=== PATIENT | female | born 1970 | race Caucasian/White ===

== ENCOUNTER → 2025-02-12 08:39 | Outpatient (CLI) | payer OTHER, SELFPAY | PROVIDERS: PCP Nurse Practitioner; Referring Provider Nurse Practitioner; Visit Provider Surgery | DX: S81.801A Unspecified open wound, right lower leg, initial encounter (principal); L53.8 Other specified erythematous conditions; R23.4 Changes in skin texture; R60.0 Localized edema | CPT/HCPCS: 11042; 99203; 99213 ==

== ENCOUNTER → 2025-02-19 09:34 | Outpatient (CLI) | payer OTHER, SELFPAY | PROVIDERS: PCP Nurse Practitioner; Referring Provider Nurse Practitioner; Visit Provider Surgery | DX: S81.801A Unspecified open wound, right lower leg, initial encounter (principal); I10 Essential (primary) hypertension; R60.0 Localized edema | CPT/HCPCS: 11042 ==

== ENCOUNTER → 2025-02-26 15:04 | Outpatient (CLI) | payer OTHER, SELFPAY | LOC: WC 15:05 | PROVIDERS: PCP Nurse Practitioner; Referring Provider Nurse Practitioner; Visit Provider Surgery | DX: S81.801A Unspecified open wound, right lower leg, initial encounter (principal); Y92.094 Garage of other non-institutional residence as the place of occurrence of the external cause; R23.4 Changes in skin texture | CPT/HCPCS: 11042 ==

== ENCOUNTER → 2025-03-06 14:43 | Outpatient (CLI) | payer OTHER, SELFPAY | LOC: WC 15:01 | PROVIDERS: PCP Nurse Practitioner; Referring Provider Nurse Practitioner; Visit Provider Surgery | DX: S81.811A Laceration without foreign body, right lower leg, initial encounter (principal) | CPT/HCPCS: 11042 ==

== ENCOUNTER → 2025-03-13 15:16 | Outpatient (CLI) | payer OTHER, SELFPAY | PROVIDERS: PCP Nurse Practitioner; Referring Provider Nurse Practitioner; Visit Provider Surgery | DX: S81.811A Laceration without foreign body, right lower leg, initial encounter (principal); L98.8 Other specified disorders of the skin and subcutaneous tissue | CPT/HCPCS: 11042; 99213 ==

== ENCOUNTER → 2025-03-21 15:02 | Outpatient (CLI) | payer OTHER, SELFPAY | PROVIDERS: PCP Nurse Practitioner; Referring Provider Nurse Practitioner; Visit Provider Surgery | DX: S81.801A Unspecified open wound, right lower leg, initial encounter (principal); L98.8 Other specified disorders of the skin and subcutaneous tissue | CPT/HCPCS: 11042 ==

== ENCOUNTER → 2025-03-28 14:33 | Outpatient (CLI) | payer OTHER, SELFPAY | LOC: WC 14:35 | PROVIDERS: PCP Nurse Practitioner; Referring Provider Nurse Practitioner; Visit Provider Surgery | DX: T81.89XD Other complications of procedures, not elsewhere classified, subsequent encounter (principal); S81.801D Unspecified open wound, right lower leg, subsequent encounter | CPT/HCPCS: 99213 ==